=== PATIENT | female | born 1945 ===

== ENCOUNTER 2018-07-26 07:20 | Day surgery (SDC) | payer MEDICARE, BC ==
[~2018-07-26 07:20] MED LIST: Acetaminophen TAB* 325 MG PO PRN; Buffered Lidocaine 1% SYRIN* 1 ML/SYRINGE INTRADERM ONE
[2018-07-26] MEDS ORDERED: Midazolam* 1 MG/ML 2 ML VIAL (2 MG) ONE (08:27)
[2018-07-26] MEDS ORDERED: fentaNYL* 50 MCG/ML 2 ML VIAL (100 MCG VIAL) ONE (08:27)
[2018-07-26] MEDS ORDERED: Acetaminophen TAB* 325 MG ONE (09:41)
[2018-07-26 09:44] VITALS: BP 147/81
--- NOTE | 2018-07-26 10:27 | OP ---
OPERATIVE REPORT: DATE OF OPERATION: 07/26/18 DATE OF : 49 SURGEON: Bernabe Tracey MD. MAINTENANCE SHOP LABORER: None. ANESTHESIA: Topical with intravenous sedation. PRE-OP DIAGNOSIS: Cataract with astigmatism, right eye. POST-OP DIAGNOSIS: Cataract with astigmatism, right eye. OPERATIVE PROCEDURE: Phacoemulsification and cataract extraction with posterior chamber intraocular lens implant, right eye. COMPLICATIONS: None. BLOOD LOSS: None. OPERATIVE FINDINGS: The patient was seen preoperatively in the holding area where a tiesha was made at the 6 o'clock position of the limbus of her right eye while she was sitting in an upright position. The patient was subsequently brought to the operating room and given intravenous sedation. A drop o f tetracaine was placed in the right eye and she was prepped and draped in the usual sterile fashion for ophthalmic surgery. Attention was directed to the right eye where a speculum was placed. A par acentesis was created at the 11 o'clock position and 0.1 cc of 1% preservative-free lidocaine was inj ected into the anterior chamber followed by DisCoVisc. The eye was digitally stabilized while a 2.75 mm keratome was used to create a triplanar clear corneal incision at the 9 o'clock position. A cont inuous curvilinear capsulorrhexis was created with a cystotome and Utrata forceps. BSS on a cannula was used to hydrodissect the lens from the capsule. Phacoemulsification was performed in a divide-an d-conquer technique to create 4 fragments, which were removed. Residual cortical material was remove d with irrigation and aspiration. ProVisc was used to inflate the capsular bag. The ORA instrument w as employed to help choose the lens. An SN6AT5 16 diopter lens was chosen and opened. The lens was loaded into the cartridge and then inserted into the eye. The reticle was turned on in the ORA to gu kay alignment axis and the lens was rotated with Sinskey hook to the appropriate axis. The ORA was r eemployed to confirm proper placement. At this point, a Sinskey hook was placed to the paracentesis t o stabilize the lens while irrigation and aspiration were performed to remove viscoelastic from the e ye. The Sinskey hook was removed. BSS on a cannula was used to hydrate the corneal stroma and seal t he wound. At the end of the case, the pupil was round. The lens was centered stable in axial line. The eye pressure appeared normal and the wound was water tight. The speculum was removed and topica l Maxitrol ointment was placed on the surface of the eye. The eye was closed, patched and shielded, and the patient was sent to the recovery room in stable condition with postoperative instructions and followup appointment given. [id number]/[facility] #: [id number]
[2018-07-26] MEDS ORDERED: Tropicamide 1% OPTH.SOL* BTL ONE (13:25)
[2018-07-26] MEDS ORDERED: Lidocaine 1%* 5 ML VIAL ONE (13:25)
[2018-07-26] MEDS ORDERED: Tetracaine 0.5% OPTH.SOL 4 ML* 1 DROP BTL ONE (13:25)
[2018-07-26] MEDS ORDERED: Neomycin/Polymy/Dex OPHTH.OIN* 3.5 GM ONE (13:25)
[2018-07-26] MEDS ORDERED: Ketorolac 0.5% OPHTH (NF) 0.5 % 5 ML BTL ONE (13:25)
[2018-07-26] MEDS ORDERED: Phenylephrine 2.5% OPTH.SOL* 2 ML BTL ONE (13:25)
[2018-07-26] MEDS ORDERED: Cyclopentolate 1% OPTH.SOL* 2 ML BTL ONE (13:25)
== END 2018-07-26 09:52 | disposition home or self-care (01) ==
LOC: OREAST 07:20
PROVIDERS: ATTEND Ophthalmology
DX: H25.11 Age-related nuclear cataract, right eye (principal); E11.9 Type 2 diabetes mellitus without complications; Z79.84 Long term (current) use of oral hypoglycemic drugs; E78.00 Pure hypercholesterolemia, unspecified; I10 Essential (primary) hypertension; Z85.3 Personal history of malignant neoplasm of breast; Z87.891 Personal history of nicotine dependence
CPT/HCPCS: A9270-GY; J2250; J3010; V2787

== ENCOUNTER 2018-08-02 08:49 | Day surgery (SDC) | payer MEDICARE, BC ==
[2018-08-02] MEDS ORDERED: fentaNYL* 50 MCG/ML 2 ML VIAL (100 MCG VIAL) ONE (10:57)
[2018-08-02] MEDS ORDERED: Midazolam* 1 MG/ML 2 ML VIAL (2 MG) ONE (10:57)
[2018-08-02] MEDS ORDERED: Phenylephrine 2.5% OPTH.SOL* 2 ML BTL ONE (11:42)
[2018-08-02] MEDS ORDERED: Neomycin/Polymy/Dex OPHTH.OIN* 3.5 GM ONE (11:42)
[2018-08-02] MEDS ORDERED: Tropicamide 1% OPTH.SOL* BTL ONE (11:42)
[2018-08-02] MEDS ORDERED: Ketorolac 0.5% OPHTH (NF) 0.5 % 5 ML BTL ONE (11:42)
[2018-08-02] MEDS ORDERED: Tetracaine 0.5% OPTH.SOL 4 ML* 1 DROP BTL ONE (11:42)
[2018-08-02] MEDS ORDERED: Lidocaine 1%* 5 ML VIAL ONE (11:42)
[2018-08-02] MEDS ORDERED: Cyclopentolate 1% OPTH.SOL* 2 ML BTL ONE (11:42)
[2018-08-02 12:20] VITALS: BP 139/75
--- NOTE | 2018-08-02 16:22 | OP ---
DATE OF OPERATION: 08/02/18 - [facility] DATE OF : 49 SURGEON: Bernabe Tracey MD. CAR INSTALLATIONS SUPERVISOR: None. ANESTHESIA: Topical with intravenous sedation. PRE-OP DIAGNOSIS: Cataract, left eye with astigmatism. POST-OP DIAGNOSIS: Cataract, left eye with astigmatism. OPERATIVE PROCEDURE: Phacoemulsification and cataract extraction with posterior chamber toric intraocular lens implant, left eye. COMPLICATIONS: None. BLOOD LOSS: None. DESCRIPTION OF PROCEDURE: The patient was seen preoperatively in the holding area where a tiesha was made at the 6 o'clock position of the limbus of the left eye while the patient was in an upright position. The patient was subsequently brought to the operating room and given intravenous sedation as well as a drop of tetracaine to the left eye. The patient was prepped and draped in the usual sterile fashion for ophthalmic surgery. Attention was directed to the left eye where a speculum was placed. Paracentesis was created at the 5 o'clock position and 0.1 cc of 1% preservative-free lidocaine was injected in the anterior chamber followed by DisCoVisc. The eye was digitally stabilized while a 2.75 mm keratome was used to create a triplanar clear corneal incision at the 3 o'clock position. A continuous curvilinear capsulorrhexis was created with a cystotome and Utrata forceps. BSS on a cannula was used to hydrodissect the lens from the capsule. Phacoemulsification was performed in a divide-and- conquer technique to create 4 fragments, which were removed. Residual cortical material was removed with irrigation and aspiration. ProVisc was used to inflate the capsular bag. The ORA instrument was employed to help guide the lens choice. An SN6AT4 11.0 diopter lens was folded and inserted into the capsular bag. It was dialed to the 88 degree axis as guided by the ORA's reticle. The lens was stabilized with a Sinskey hook while irrigation and aspiration was performed to remove viscoelastic from the eye. BSS on a cannula was used to hydrate the corneal wound. At the end of the case, the pupil was round, the lens were centered stable in axial line. The eye pressure appeared normal and wound was watertight. The speculum was removed and topical Maxitrol ointment was placed on the surface of the eye. The eye was closed, patched, and shielded and the patient was sent to recovery room in stable condition with postoperative instructions and followup appointment given. [id number]/[facility] #: [id number] LUIGI
== END 2018-08-02 12:30 | disposition home or self-care (01) ==
LOC: OREAST 08:49
PROVIDERS: ATTEND Ophthalmology
DX: H25.12 Age-related nuclear cataract, left eye (principal); H52.202 Unspecified astigmatism, left eye; E11.9 Type 2 diabetes mellitus without complications; Z79.84 Long term (current) use of oral hypoglycemic drugs; I10 Essential (primary) hypertension; E78.00 Pure hypercholesterolemia, unspecified
CPT/HCPCS: A9270-GY; J2250; J3010; V2787